=== PATIENT | female | born 1980 | race Two or more races ===

== ENCOUNTER 2020-04-06 07:45 | Inpatient (IN) | payer OTHER ==
[2020-04-06] MEDS ORDERED: ELECTROLYTE-148 SOLN 500 ML IV SCH (08:30)
[2020-04-06] MEDS ORDERED: CITRIC ACID/SODIUM CITRATE 30 ML UNIT-DOSE CUP PO ONE (08:30)
[2020-04-06] MEDS ORDERED: ELECTROLYTE-148 SOLN 1,000 ML IV SCH (09:00)
[2020-04-06 09:24] VITALS: BMI 38.0
--- NOTE | 2020-04-06 10:12 | HP ---
Past Medical History - Primary Care Physician PCP:: Christine Atkins - Admission Chief Complaint: scheduled repeat C/S + BTL History Source: Patient Limitations to Obtaining History: No Limitations - Past Medical History ...: 3 ...Para: 2 ...Term: 2 ...LMP: 07/05/19 ... Weeks Gestation by Dates: 39.3 ...EDC by Dates: 04/10/20 ...EDC by Sono: 04/07/20 - Past Surgical History Past Surgical History: Yes: Hx Myomectomy: No Hx Transabdominal Cerclage: No - Smoking History Smoking history: Current every day smoker Have you smoked in the past 12 months: Yes Aproximately how many cigarettes per day: 6 - Alcohol/Substance Use Hx Alcohol Use: No Home Medications - Allergies Allergies/Adverse Reactions: Allergies Allergy/AdvReac Type Severity Reaction Status Date / Time Fish Containing Products AdvReac Mild Itching Verified 04/04/20 16:28 - Home Medications Home Medications: Ambulatory Orders Vitamins (Sjr) - 1 tab PO DAILY 04/02/20 Review of Systems - Review of Systems Constitutional: reports: No Symptoms Cardiovascular: reports: No Symptoms Respiratory: reports: No Symptoms Gastrointestinal: reports: No Symptoms Genitourinary: reports: No Symptoms Breasts: reports: No Symptoms Reported Musculoskeletal: reports: No Symptoms Neurological: reports: No Symptoms Psychiatric: reports: No Symptoms Physical Exam - Maternity Vital Signs: Vital Signs Temperature 98.3 F 04/06/20 09:14 Pulse Rate 92 H 04/06/20 09:14 Respiratory Rate 04/06/20 09:14 Blood Pressure 125/81 04/06/20 09:14 O2 Sat by Pulse Oximetry (%) Constitutional: Yes: No Distress, Calm Cardiovascular: Yes: Regular Rate and Rhythm Lungs: Clear to auscultation - Abdominal Exam/OB Fundal Height: 40 Number of Fetuses: Single Presentation: Vertex Contractions: No Monitor Mode: External Category: I Decelerations: None - Vaginal Exam/OB Vaginal Bleeding: No - Physical Exam Musculoskeletal: Yes: WNL Extremities: Yes: WNL Edema: No Psychiatric: Yes: Alert, Oriented Assessment/Plan 39 y/o at 39w3d with previous C/S x2, satisfied parity. Admit to L&D for repeat C/S + BTL.
[2020-04-06] MEDS ORDERED: ceFAZolin SODIUM 1 GM VIAL ONE (11:04)
[2020-04-06] MEDS ORDERED: ePHEDrine SULFATE 50 MG/1 ML AMPULE ONE (11:06)
[2020-04-06] MEDS ORDERED: PROPOFOL 20 ML ONE (11:06)
[2020-04-06] MEDS ORDERED: SUCCINYLCHOLINE CHLORIDE 200 MG/10 ML SYRINGE ONE (11:06)
[2020-04-06] MEDS ORDERED: morphine SULFATE/PF 0.5 MG/ML (2cc Syringe - QUVA) ONE (11:13)
[2020-04-06] MEDS ORDERED: OXYTOCIN 10 UNITS/ML VIAL ONE (11:36)
[2020-04-06] MEDS ORDERED: KETOROLAC TROMETHAMINE 30 MG/1 ML VIAL ONE (11:50)
[2020-04-06] MEDS ORDERED: OXYTOCIN 20 UNITS in 0.9% NS 20 UNIT/1,000 ML INFUS.BAG IV ONE ×2 (12:23→14:46)
[2020-04-06] MEDS ORDERED: ONDANSETRON 4 MG/2 ML VIAL IVPUSH PRN (12:45)
[2020-04-06] MEDS ORDERED: morphine SULFATE/PF 0.5 MG/ML (2cc Syringe - QUVA) SPIN ONE (12:45)
[2020-04-06] MEDS ORDERED: IBUPROFEN 600 MG TABLET (FP) PO PRN (12:45)
[2020-04-06] MEDS ORDERED: METHYLERGONOVINE MALEATE 0.2 MG/1 ML AMP IM PRN (12:57)
[2020-04-06] MEDS ORDERED: SENNOSIDES/DOCUSATE COMBO (SENNA PLUS) TABLET (UD) PO PRN (12:59)
--- NOTE | 2020-04-06 13:11 | OP ---
Operative Note - Note: Operative Date: 04/06/20 Pre-Operative Diagnosis: IUP at 39w3d, previous C/S x2, satisfied parity Operation: repeat C/S x3 + BTL Findings: minimal intra-abdominal adhesions live in cephalic presentation delivered atraumatically with score 9/9 normal bilateral fallopian tubes and ovaries Post-Operative Diagnosis: Same as Pre-op Surgeon: Christine Atkins Insulation Worker Interior Surface: Ivonne Pelletier Anesthesiologist/MILKING MACHINE MECHANIC: Zenia Arzola Anesthesia: Spinal Specimens Removed: portions of bilateral fallopian tubes Estimated Blood Loss (mls): 500 Drains & Tubes with Location: urinary Short catheter Operative Report Dictated: No
[2020-04-06] MEDS ORDERED: ACETAMINOPHEN INJECTION 100 ML IVPB ONE (13:32)
[2020-04-06] MEDS ORDERED: ACETAMINOPHEN 1000 MG/100 ML VIAL (NON FORMULARY) IVPB ONE (14:30)
[2020-04-06] MEDS: OXYTOCIN 20 UNITS in 0.9% NS 20 UNIT/1,000 ML INFUS.BAG IV SCH (14:42)
[2020-04-07] MEDS: IBUPROFEN 600 MG TABLET (FP) PO PRN ×3 (01:43→22:16)
[2020-04-07] MEDS: ACETAMINOPHEN 325 MG TABLET (FP) PO PRN ×4 (01:44→22:16)
[2020-04-07] MEDS: SIMETHICONE 80 MG TAB.CHEW (FP) PO PRN ×4 (01:45→22:16)
[2020-04-07 08:49] LABS: BASO % 0.7 % (0-2.0); EOS % 4.6 % (0-4.5); HEMATOCRIT 31.2 % (32.4-45.2); HEMOGLOBIN 10.6 GM/dL (10.7-15.3); LYMPH % 19.6 % (8-40); MCH 28.2 pg (25.7-33.7); MEAN PLT VOLUME 9.9 fl (7.5-11.1); MONO % 7.1 % (3.8-10.2); PLATELET COUNT 187 K/MM3 (134-434); RBC 3.76 M/mm3 (3.60-5.2); RDW 15.4 % (11.6-15.6)
[2020-04-07] MEDS: oxyCODONE HCL 5 MG TABLET PO PRN ×3 (09:28→22:16)
[2020-04-07] MEDS: PRENATAL VITAMINS W/ FOLIC ACID TABLET (FP) PO SCH (09:28)
--- NOTE | 2020-04-07 10:46 | PN ---
Post Progress Note - Subjective Subjective: denies complaints tolerating diet ambulating voiding Post Day: 1 Type of Delivery: Repeat C/S Vital Signs: Vital Signs Temperature 98.5 F 04/07/20 05:00 Pulse Rate 76 04/07/20 05:00 Respiratory Rate 20 04/07/20 06:15 Blood Pressure 121/78 04/07/20 05:00 O2 Sat by Pulse Oximetry (%) Breast Exam: Yes: Soft Uterus: Yes: Fundus Firm Incision: Yes: Dressing dry and intact Abdomen/GI: Yes: Abdomen soft Lochia: Yes: Rubra Lochia, amount: Small Extremities: Yes: Calves non-tender Activity: Ambulating - Labs Labs: CBC WBC 8.0 K/mm3 (4.0-10.0) 04/07/20 07:33 RBC 3.76 M/mm3 (3.60-5.2) 04/07/20 07:33 Hgb 10.6 GM/dL (10.7-15.3) L 04/07/20 07:33 Hct 31.2 % (32.4-45.2) L D 04/07/20 07:33 MCV 83.0 fl (80-96) 04/07/20 07:33 MCH 28.2 pg (25.7-33.7) 04/07/20 07:33 MCHC 34.0 g/dl (32.0-36.0) 04/07/20 07:33 RDW 15.4 % (11.6-15.6) 04/07/20 07:33 Plt Count 187 K/MM3 (134-434) D 04/07/20 07:33 MPV 9.9 fl (7.5-11.1) 04/07/20 07:33 Absolute Neuts (auto) 5.5 K/mm3 (1.5-8.0) 04/07/20 07:33 Neutrophils % 68.0 % (42.8-82.8) 04/07/20 07:33 Lymphocytes % 19.6 % (8-40) 04/07/20 07:33 Monocytes % 7.1 % (3.8-10.2) 04/07/20 07:33 Eosinophils % 4.6 % (0-4.5) H 04/07/20 07:33 Basophils % 0.7 % (0-2.0) 04/07/20 07:33 Nucleated RBC % 0 % (0-0) 04/07/20 07:33 Problem List - Problems (1) Status post repeat low transverse section Assessment/Plan: ambulation pain management incentive spirometer regular diet Code(s): Z98.891 - HISTORY OF UTERINE SCAR FROM PREVIOUS SURGERY
[2020-04-07] MEDS ORDERED: DIPHTH,PERTUSS(ACELL),TET 0.5 ML DISP.SYRIN IM ONE (11:00)
[2020-04-07] MEDS ORDERED: BISACODYL 10 MG SUPP.RECT RC PRN (12:57)
--- NOTE | 2020-04-07 14:48 | PN ---
Progress Note, Physician Chief Complaint: s/p c section post op day one History of Present Illness: under spinal anesthesia with duramorph intrathecally for post op pain control - Current Medication List Current Medications: Active Medications Acetaminophen (Tylenol -) 650 mg PO Q4H PRN PRN Reason: PAIN LEVEL 1-5 Last Admin: 04/07/20 14:03 Dose: 650 mg Documented by: Bisacodyl (Dulcolax Suppository -) 10 mg RC PRN PRN PRN Reason: CONSTIPATION Diphenhydramine HCl (Benadryl Injection -) 25 mg IVPUSH Q4H PRN PRN Reason: Pruritis Last Admin: 04/06/20 14:10 Dose: 25 mg Documented by: Oxytocin/Sodium Chloride (Normal Saline+20 Units Oxytocin -) 20 unit in 1,000 mls @ 125 mls/hr IV ASDIR [facility] Last Admin: 04/06/20 14:42 Dose: 125 mls/hr Documented by: Ibuprofen (Motrin -) 600 mg PO Q4H PRN PRN Reason: PAIN LEVEL 1 - 3 Last Admin: 04/07/20 01:43 Dose: 600 mg Documented by: Methylergonovine Maleate (Methergine Injection -) 0.2 mg IM Q4H PRN PRN Reason: Excessive Bleeding (L&D) Ondansetron HCl (Zofran Injection) 4 mg IVPUSH Q4H PRN PRN Reason: NAUSEA Oxycodone HCl (Roxicodone -) 5 mg PO Q4H PRN PRN Reason: PAIN LEVEL 4 - 6 Last Admin: 04/07/20 14:02 Dose: 5 mg Documented by: Multivit/Folic Acid/Iron ( Vitamins (Sjr) -) 1 tab PO DAILY [facility] Last Admin: 04/07/20 09:28 Dose: 1 tab Documented by: Senna/Docusate Sodium (Pericolace -) 2 tablet PO HS PRN PRN Reason: CONSTIPATION Simethicone (Mylicon -) 80 mg PO Q4H PRN PRN Reason: GAS Last Admin: 04/07/20 14:03 Dose: 80 mg Documented by: - Objective Vital Signs: Vital Signs Temperature 98.8 F 04/07/20 13:00 Pulse Rate 81 04/07/20 13:00 Respiratory Rate 16 04/07/20 13:00 Blood Pressure 126/77 04/07/20 13:00 O2 Sat by Pulse Oximetry (%) Constitutional: Yes: Well Nourished Cardiovascular: Yes: WNL Respiratory: Yes: WNL Gastrointestinal: Yes: WNL Labs: CBC, BMP 04/07/20 07:33 Assessment/Plan Doing well, pain controlled, no nausea, vomiting, or other anesthetic complications, dept of anesthesiology will sign off care at this time
[2020-04-07] MEDS: OXYTOCIN 20 UNITS in 0.9% NS 20 UNIT/1,000 ML INFUS.BAG IV SCH (15:21)
[2020-04-08] MEDS: SIMETHICONE 80 MG TAB.CHEW (FP) PO PRN ×2 (08:12→12:05)
[2020-04-08] MEDS: ACETAMINOPHEN 325 MG TABLET (FP) PO PRN ×2 (08:12→12:05)
[2020-04-08] MEDS: oxyCODONE HCL 5 MG TABLET PO PRN (08:13)
[2020-04-08] MEDS: PRENATAL VITAMINS W/ FOLIC ACID TABLET (FP) PO SCH (09:17)
[2020-04-08 10:36] VITALS: BP 131/77; PULSE 75; TEMP 98.8
--- NOTE | 2020-04-08 11:17 | DS ---
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 Vital Signs: Vital Signs Temperature 98.8 F 04/08/20 10:00 Pulse Rate 75 04/08/20 10:00 Respiratory Rate 16 04/08/20 10:00 Blood Pressure 131/77 04/08/20 10:00 O2 Sat by Pulse Oximetry (%) Constitutional: Yes: Well Nourished Eyes: Yes: WNL HENT: Yes: WNL Neck: Yes: WNL Cardiovascular: Yes: WNL Respiratory: Yes: WNL Gastrointestinal: Yes: Normal Bowel Sounds, Soft, Abdomen, Obese Internal Exam Deferred: Yes Uterus: Yes: Firm (incision healing well; no syaples) Extremities: Yes: WNL Wound/Incision: Yes: Clean/Dry, Well Approximated, Sutures Intact Labs: CBC, BMP 04/07/20 07:33 Delivery - Delivery Section: Low Flap Transverse Type of Anesthesia: Spinal Episiotomy/Laceration: None EBL (cc): 500 Delivery, Single - Stages of Labor Date of Delivery: 04/06/20 Time of Delivery: 11:44 Time Placenta Delivered: 11:46 - Condition of Distance Learning Program Coordinator/Varnish Finisher Present: Yes Name: Marion Anguiano Infant Gender: Female Weight: 2.778 kg Position: Right, OT Total Hours ROM (Hrs/Mins): 1 min - 1 Minute Total Score: 9 5 Minutes Total Score: 9 - Feeding Plan Initial Plan: Elected not to breastfeed exclusively throughout hospitalization Remarks - Remarks Remarks: s/p repeat c section x 3; adhesion of bowel to abdomen from previous vertical incision requesting discharge today Discharge Summary Problems reviewed: Yes Reason For Visit: C SECTION Current Active Problems Status post repeat low transverse section (Acute) Procedures: Principal: repeat c section x 3 Other Procedures: BTL Hospital Course: benign Plan of Treatment: home today; RTO 1 week Condition: Good - Instructions Diet, Activity, Other Instructions: regular diet Disposition: HOME - Home Medications Comprehensive Discharge Medication List: Ambulatory Orders Vitamins (Sjr) - 1 tab PO DAILY 04/02/20 Prescription Drug Monitoring Program (I-STOP) results: I-STOP reviewed and no issues identified
[2020-04-08] MEDS: IBUPROFEN 600 MG TABLET (FP) PO PRN (12:05)
--- NOTE | 2020-04-08 14:02 | OP ---
DATE OF OPERATION: 04/06/2020 PREOPERATIVE DIAGNOSIS: Intrauterine at 39 weeks and 3 days, previous section x2, satisfied parity. PROCEDURE: Repeat section x3 and bilateral tubal ligation. FINDINGS: Minimal intraabdominal adhesions; live infant in cephalic presentation delivered atraumatically with score of 9,9; normal bilateral fallopian tubes and ovaries. POSTOPERATIVE DIAGNOSIS: Minimal intraabdominal adhesions; live in cephalic presentation delivered atraumatically with score of 9,9; normal bilateral fallopian tubes and ovaries. SURGEON: Christine Atkins MD SUBSTITUTE CROSSING GUARD: Ivonne Pelletier MD ANESTHESIOLOGIST: Zenia Arzola MD ANESTHESIA: Spinal. SPECIMENS: Portions of bilateral fallopian tubes. ESTIMATED BLOOD LOSS: 500 mL DRAINS: Urinary Short catheter. COMPLICATIONS: None. PROCEDURE: Patient was taken to the operating room where spinal anesthesia was administered without difficulty. She was prepped and draped in dorsal supine position with a leftward tilt. A Pfannenstiel skin incision was made with the scalpel. The incision was carried down to the level of the fascia with the Bovie. The fascia was incised and extended laterally. The superior and inferior aspects of the fascia were grasped with Cat clamps and the underlying rectus muscle and pyramidalis were dissected off. The rectus muscles were in the midline. The peritoneum was entered bluntly. The entry was extended superiorly and inferiorly to the bladder reflection with good visualization of the bladder. There were minimal serosal adhesions from bladder to anterior surface of uterus which were lysed. A bladder blade was placed. A bladder flap was developed and a low transverse uterine incision was made. The fetus was in cephalic presentation. The head was grasped and brought to the level of the incision and with gentle fundal pressure the was delivered without difficulty. The mouth and nose were suctioned with bulb. The cord was clamped and cut. There was 1 nuchal cord around the baby's neck which was reduced. The baby was handed off to the nursery staff. The placenta was delivered manually complete and intact. The uterus was delivered out of the abdomen. The inside of the uterus was wiped clean with laparotomy sponges. The uterine incision was closed with 0 Vicryl in running locked fashion. Additional [id number] sutures were placed for good hemostasis. The bilateral tubal ligation was then performed via modified Hector method and portions of bilateral fallopian tubes were sent for pathology. Good hemostasis was noted at the tubal ligation sites. The uterus, tubes and ovaries were returned to the abdominal cavity. The rectus muscles were reapproximated using 2-0 chromic suture. The fascia was closed in running fashion using 0 Vicryl. The subcutaneous fatty tissue was reapproximated using 2-0 chromic and the skin was closed in subcuticular fashion using 3-0 Polysorb. The patient tolerated the procedure well. All counts were correct x2 and the patient was transferred to the recovery room in stable condition. MD COLETTE GARCIA/[id number] MTDNam
--- NOTE | 2020-04-13 17:54 | PATH ---
Surgical Pathology Report Patient Name: LATASHA MATIAS [facility]. Rec. 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 Specimen(s) Received A: PLACENTA B: LEFT FALLOPIAN TUBE C: RIGHT FALLOPIAN TUBE Clinical History , 39.6 gestational weeks Final Diagnosis A. PLACENTA, SECTION: 434 G THIRD TRIMESTER PLACENTA WITH TRIVASCULAR UMBILICAL CORD AND UNREMARKABLE PLACENTAL MEMBRANES. B. FALLOPIAN TUBE, LEFT, PARTIAL EXCISION: FULL LUMINAL PORTION OF UNREMARKABLE FALLOPIAN TUBE. C. FALLOPIAN TUBE, RIGHT, PARTIAL EXCISION: FULL LUMINAL PORTION OF FALLOPIAN TUBE WITH WALTHARD NEST CYST. Electronically Signed Alicia Cleveland M.D. Gross Description A. The specimen is received fresh labeled placenta and is a 434 gram, 19.5 x 16.5 x 2.7 cm. placenta with attached membranes and umbilical cord. The attached membranes are samson, translucent with focal opacities and insert marginally. The umbilical cord measures 29 cm. in length and averages 1.2 cm. in diameter. The cord inserts eccentrically, 3 cm. to the nearest margin. No true knots or strictures are identified. Cut surface of the umbilical cord reveals 3 vessels. The surface is palma-blue with minimal fibrin deposition and appropriate caliber vessels. The maternal surface is red-brown with focal defects. Sectioning reveals red-brown, spongy parenchyma. No lesions are identified. Underwriting Sales Representative sections are submitted in three cassettes as follows: 1- membrane rolls and umbilical cord; 2-3- full thickness sections of placenta. B. Received in formalin labeled "left fallopian tube," is a 1.4 cm in length portion of fallopian tube. No fimbria are present. The outer surface is samson-flores and smooth. Sectioning reveals an unremarkable lumen. Underwriting Sales Representative sections are submitted in one cassette. C. received in formalin labeled "right fallopian tube," is a 1.5 cm in length portion of fallopian tube. No fimbria are present. The outer surface is samson-flores and smooth. Sectioning reveals an unremarkable lumen. Underwriting Sales Representative sections are submitted in one cassette. 04/12/2020 [facility]04/12/2020
== END 2020-04-08 14:10 | disposition home or self-care (01) | DRG 540 ==
LOC: JLDR 07:45 → J3W 15:10
PROVIDERS: ADMIT Obstetrics & Gynecology; ATTEND Obstetrics & Gynecology
PROC: 10D00Z1 Extraction of Products of Conception, Low, Open Approach (ICD-10-PCS; principal; 2020-04-06)
PROC: 0UL70ZZ Occlusion of Bilateral Fallopian Tubes, Open Approach (ICD-10-PCS; 2020-04-06)
DX: O82 Encounter for cesarean delivery without indication (principal); O34.211 Maternal care for low transverse scar from previous cesarean delivery; O99.334 Smoking (tobacco) complicating childbirth; F17.210 Nicotine dependence, cigarettes, uncomplicated; N73.6 Female pelvic peritoneal adhesions (postinfective); O69.81X0 Labor and delivery complicated by cord around neck, without compression, not applicable or unspecified; Z30.2 Encounter for sterilization; Z3A.39 39 weeks gestation of pregnancy; Z37.0 Single live birth; Z91.013 Allergy to seafood
CPT/HCPCS: 36415; 85025; 88302-TC; 88307-TC; 90715; J0131